=== PATIENT | female | born 1930 | race Caucasian/White ===

== ENCOUNTER 2017-01-13 10:21 | Emergency (ER) | payer MEDICARE, BC ==
[~2017-01-13] VITALS: Ht 154.9 cm; Wt 59.9 kg
--- NOTE | 2017-01-13 10:21 | NUR ---
BIB [facility] FROM HOME TRIP AND FELL FACE FORWARD LAC ON NOSE AND LFA SKIN TEAR -KO . BS IN FIELD 131.
--- NOTE | 2017-01-13 10:35 | NUR ---
PATIENT BIB [facility] D/T GLF AT HOME. PATIENT HAS A LACERATION ON NOSE AND A LFA SKIN TEAR. PATIENT IS A/OX 4. DENIES LOSING CONSCIOUSNESS. BREATHING EVEN AND UNLABORED. VITALS STABLE. SAFETY AND COMFORT MEASURES IN PLACE. AWAITING MD ORDERS.
[2017-01-13 10:55] LABS: BASOPHILS % (AUTO) 0.3 % (0.0-2.0); EOSINOPHILS # (AUTO) 0.3 /CMM (0.0-0.7); EOSINOPHILS % (AUTO) 4.4 % (0.0-6.0); HEMATOCRIT 31 % (33-45); HEMOGLOBIN 10.5 g/dL (11.5-14.8); LYMPHOCYTES % (AUTO) 16.4 % (20.0-44.0); MEAN CORPUSCULAR HEMOGLOBIN 31 PG (26.0-33.0); MEAN CORPUSCULAR HGB CONC 34 g/dl (31.0-36.0); MEAN CORPUSCULAR VOLUME 92 fL (82-100); MONOCYTES # (AUTO) 0.7 /CMM (0.1-1.30); MONOCYTES % (AUTO) 10.7 % (2.0-12.0); NEUTROPHILS # (AUTO) 4.4 /CMM (1.8-8.9); NEUTROPHILS % (AUTO) 68.2 % (43.0-81.0); PLATELET COUNT (AUTO) 236 /CMM (150-450); RDW COEFFICIENT OF VARIATION 12.8 (11.5-15.0); RED BLOOD CELL COUNT(AUTO) 3.35 MIL/uL (4.0-5.2); WHITE BLOOD COUNT (AUTO) 6.4 K/uL (4.3-11.0)
--- NOTE | 2017-01-13 11:02 | NUR ---
PATIENT TAKEN TO CT VIA STRETCHER.
[2017-01-13 11:04] LABS: CALCIUM, SERUM 8.7 mg/dL (8.5-10.1); CARBON DIOXIDE 28 mmol/L (21-32); CHLORIDE 104 mmol/L (98-107); GLUCOSE 125 mg/dL (74-106); POTASSIUM 4.1 mmol/L (3.5-5.1); SODIUM SERUM 139 mmol/L (136-145); UREA NITROGEN, BLOOD 16 mg/dL (7-18)
[2017-01-13 11:08] LABS: PROTHROMBIN TIME 10.4 SECS (9.5-12.7)
[2017-01-13 11:15] LABS: TROPONIN I < 0.017 ng/mL (0.00-0.056)
--- NOTE | 2017-01-13 11:20 | NUR ---
PATIENT RETURNED FROM CT. REMAINS STABLE.
--- NOTE | 2017-01-13 11:50 | NUR ---
AT BEDSIDE FOR WOUND CARE.
[2017-01-13 12:45] VITALS: BP 158/92
--- NOTE | 2017-01-13 12:55 | NUR ---
Patient discharged to home in stable condition. Written and verbal after care instructions given. Patient verbalizes understanding of instruction.
== END 2017-01-13 12:55 | disposition home or self-care (01) ==
LOC: ER 10:25
DX: S01.21XA Laceration without foreign body of nose, initial encounter (principal); E11.9 Type 2 diabetes mellitus without complications; I10 Essential (primary) hypertension; W01.0XXA Fall on same level from slipping, tripping and stumbling without subsequent striking against object, initial encounter; Y92.89 Other specified places as the place of occurrence of the external cause; Y93.89 Activity, other specified; Y99.8 Other external cause status
CPT/HCPCS: 12011; 36415; 70450; 71010; 80048; 84484; 85025; 85730; 93005; 99285; A4606; A6402; Z7610